=== PATIENT | female | born 1990 | race African-American/Black ===

== ENCOUNTER → 2017-06-27 17:37 | Outpatient (REF) | payer MEDICAID, SELFPAY ==
[2017-06-30 15:31] LABS: Neisseria gonorrhoeae, NAA Negative (Negative)
== END ==
LOC: LAB 17:37
PROVIDERS: Visit Provider Nurse Practitioner Obstetrics & Gynecology
DX: Z20.2 Contact with and (suspected) exposure to infections with a predominantly sexual mode of transmission (principal)
CPT/HCPCS: 87491; 87591

== ENCOUNTER 2018-10-06 16:00 | Outpatient (RCR) | payer MEDICAID, SELFPAY | END 2018-10-06 16:05 | disposition home or self-care (01) | LOC: PT 16:00 | PROVIDERS: Visit Provider Nurse Practitioner | DX: M54.2 Cervicalgia (principal); M25.511 Pain in right shoulder | CPT/HCPCS: 97110; 97163 ==

== ENCOUNTER → 2020-05-05 16:02 | Outpatient (CLI) | payer OTHER, SELFPAY ==
[2020-05-05 18:26] LABS: HCG,Quantitative 3207 mIU/ml (0-5.42)
== END ==
PROVIDERS: Visit Provider Nurse Practitioner Obstetrics & Gynecology
DX: Z34.90 Encounter for supervision of normal pregnancy, unspecified, unspecified trimester (principal)
CPT/HCPCS: 36415; 84702

== ENCOUNTER 2020-05-10 18:29 | Emergency (ER) | payer OTHER, SELFPAY ==
[2020-05-10 18:30] VITALS: BP 129/89; PULSE 100; RESP 20; TEMP 36.8; O2SAT 100; BMI 32.3
--- NOTE | 2020-05-10 19:03 | HMH.EDGENADL ---
ED Disposition Clinical Impression: Vaginal bleeding during Disposition: Still a Patient Condition on Discharge: Good Referrals: Zafar Ortiz MD [Primary Care Provider] - - Critical Care Critical Care Time: No Attestation: On 05/10/20, the high probability of a clinically significant, sudden or life threatening deterioration of the following system(s) required my full and direct attention, intervention and personal management. The time I documented below is in addition to time spent performing reported procedures but includes the following listed in this critical care notation. Medical Decision Making - Medical Records Medical records reviewed: Yes: I reviewed the patient's medical records. MR Comment: blood type A+. She has had a beta hCG done here on 05/05/2020 which was 3207. - Marciano Inquiry Pt receiving controlled substance: No Vital Signs: 05/10/20 18:30 05/10/20 19:24 Temperature 98.2 F Temperature Source Oral Pulse Rate [Left Radial] 100 H 88 Respiratory Rate 20 Blood Pressure [Right Arm] 129/89 111/71 Blood Pressure Mean [Right Arm] 102 84 Blood Pressure Source [Right Arm] Automatic Cuff Automatic Cuff Blood Pressure Position [Right Arm] Sitting Sitting 02 Sat by Pulse Oximetry 100 100 Oxygen Delivery Method Room Air Room Air - Lab Data Lab Results 05/10/20 18:48: HCG, Quant 4311 H 05/10/20 18:48: WBC 4.8, RBC 3.97 L, Hgb 14.0, Hct 43.8, MCV 110.4 H, MCH 35.4 H, MCHC 32.0, RDW 14.0, Plt Count 344, MPV 7.9, Neut % (Auto) 49.1, Lymph % (Auto) 39.8, [place] % (Auto) 8.5, Eos % (Auto) 1.7, Baso % (Auto) 1.0, Neut # (Auto) 2.4, Lymph # (Auto) 1.9, [place] # (Auto) 0.4, Eos # (Auto) 0.1, Baso # (Auto) 0.1 05/10/20 18:48: Sodium 137, Potassium 3.9, Chloride 106, Carbon Dioxide 20 L, Anion Gap 14.9, BUN 5 L, Creatinine 0.50 L, Estimated Creat Clear 207, Estimated GFR 144, Est GFR ( Amer) 174, Glucose 90, Calcium 10.0 Result diagrams: 05/10/20 18:48 05/10/20 18:48 Orders (Tests/Meds): ORDERS Category Date Time Status US OB transvaginal Stat Ultrasound 05/10/20 19:08 Ordered - Physician Consults Physician Consulted: Yessi Time: 20:00 Reason -: Obstetrical Eval/Care Comment/Response: Requests call back when US result available. Medical Decision Narrative: 8:00 PM: At shift change, I have discussed the patient with Dr. Morataya, who will assume care of the patient at this time. I have discussed all clinical information including history, physical and diagnostic study results. Preliminary diagnoses based on information available at this point have been recorded by me. Controlled substance administration and critical care statement are also preliminary, as of the time of handoff. General Adult HPI - General Stated complaint: and bleeding Time Seen by Provider: 05/10/20 19:00 - History of Present Illness HPI narrative: 2 para 1 with a last normal menstrual period of March 11, 2020 now presenting with vaginal bleeding. She says that she found out she was on Tuesday 1 week ago. On Tuesday, 5 days ago, she began having some spotting. It went up on Tuesday but then started up again yesterday. She thinks she might of passed a small clot. No pain. Her PERIANESTHESIA MANAGER is going to be Dr. Tejada. States she had her second Covid vaccine on Tuesday. - Related Data Previous Rx's Medication Instructions Recorded norethindrone 1 mg-ethin. 1 cap PO DAILY #28 cap 07/11/18 estradiol 20 mcg (24)-iron 75 mg (4) capsule levonorgestrel-ethinyl estradiol 1 tab PO DAILY #28 tab 08/22/18 0.1 mg-20 mcg tablet norgestimate 0.25 mg-ethinyl 1 tab PO DAILY #28 tab 10/26/18 estradiol 35 mcg tablet Allergies Allergy/AdvReac Type Severity Reaction Status Date / Time No Known Allergies Allergy Verified 05/09/18 16:09 [facility] History - Hepatitis A Screen Attestation statement:: This patient has been screened for Hepatitis A risk factors.
--- NOTE | 2020-05-10 19:08 | US_ITS ---
PROCEDURE: US OB TRANSVAGINAL Referring Doctor: Peter Landry Patient Age:29Y CLINICAL INDICATION: bleeding, , r/o ectopic Positive test with bleeding the COMPARISON: No exams were available for comparison FINDINGS: Small early gestational sac is seen towards the fundus Yolk sac identified with small pole. Amnion and chorion vaguely seen.. uterus appears mildly enlarged measuring 9.93 cm in length x 3.9 cm AP X 3.9 cm wide. Generous endometrium throughout the uterus. Endometrium measuring 1.35 cm AP,, with what appears to be decidual reaction Mean gestational sac size-6.7 mm less than 6 week [place]-rump length = 4 mm = 6 weeks 1 day. However we were unable to confirm cardiac activity at this point. A follow-up ultrasound and follow-up/serial beta HCG suggested to better confirm status this or least Average ultrasound age = 6 weeks 1 day Gestational age = 6 weeks 1 day based on LMP of 03/11/2020 Heart Rate = cardiac activity could not be confirmed even with color Doppler Right ovary normal size 2.6 x 2 cm x 2.4 cm. Small likely follicular cyst. Left ovary normal size 1.5 x 1.2 x 1.65 cm.. Unremarkable The fluid cul-de-sac IMPRESSION: Single intrauterine gestation 6 weeks 1 day ultrasound Age. However no cardiac activity could be verified. . This will require follow-up beta HCG and ultrasound to better determine status of this early Also note crown-rump length = 6 weeks 1 day../and mean sac size less than 6 weeks. (These are compared to gestational age, anticipated to be 8 weeks 4 days) Dictated by: Romaine Banegas MD 05/11/2020 16:55 Romaine Banegas MD in [place] 05/11/2020 16:55
[2020-05-10 19:17] LABS: Basophils # 0.1 K/mm3 (0-0.2); Eosinophils # 0.1 K/mm3 (0.0-0.4); Eosinophils % 1.7 % (0.1-12.0); Hematocrit 43.8 % (37.0-47.0); Lymphocytes # 1.9 K/mm3 (0.7-4.5); Lymphocytes % 39.8 % (10-50); Mean Corpuscular Hemoglobin 35.4 pg (27.0-31.2); Mean Corpuscular Volume 110.4 fl (81-99); Mean Platelet Volume 7.9 fl (7.4-10.4); Monocytes # 0.4 K/mm3 (0.1-1.0); Monocytes % 8.5 % (1.7-9.3); Neutrophils # 2.4 K/mm3 (1.8-7.8); Neutrophils % 49.1 % (37.0-80.0); Platelet Count 344 K/mm3 (142-424); Red Blood Count 3.97 M/mm3 (4.20-5.40); White Blood Count 4.8 K/mm3 (4.8-10.8)
[2020-05-10 19:18] LABS: Chloride 106 mmol/L (98-107); Potassium 3.9 mmoL/L (3.5-5.1); Sodium 137 mmol/L (136-145)
[2020-05-10 19:21] LABS: Anion Gap 14.9 mEq/L (5-15); Blood Urea Nitrogen 5 mg/dl (7-17); Carbon Dioxide 20 mmol/L (22.0-30.0); Creatinine Clearance Estimated 207 mL/min (50-200); Estimated Glomerular Filt Rate 144 ml/min (>60); GFR (African American) 174 ML/MIN (>60); Glucose 90 mg/dl (74-100)
[2020-05-10 19:24] VITALS: BP 111/71; PULSE 88; O2SAT 100
[2020-05-10 19:39] LABS: HCG,Quantitative 4311 mIU/ml (0-5.42)
[2020-05-10 20:00] VITALS: BP 121/80; PULSE 79; RESP 17; O2SAT 100
[2020-05-10 21:13] VITALS: BP 125/78; PULSE 76; RESP 16; TEMP 36.8; O2SAT 99
== END 2020-05-10 21:16 | disposition home or self-care (01) ==
PROVIDERS: Emergency Provider Emergency Medicine; PCP Family Medicine
DX: O20.8 Other hemorrhage in early pregnancy (principal); Z3A.01 Less than 8 weeks gestation of pregnancy; F41.9 Anxiety disorder, unspecified
CPT/HCPCS: 76817; 80048; 84702; 85025; 99283

== ENCOUNTER 2020-07-08 10:51 | Emergency (ER) | payer OTHER, SELFPAY ==
[2020-07-08 10:55] VITALS: BP 156/96; PULSE 108; RESP 16; TEMP 36.6; O2SAT 100; BMI 30.4
--- NOTE | 2020-07-08 11:20 | HMH.EDUTC ---
[facility] [place] Clinical Impression: Torticollis, Neck pain Disposition: Home, Self-Care Condition on Discharge: Good Instructions: Torticollis, DI for Torticollis Additional Instructions: Go home and rest. It would be best if you rested tomorrow too. No heavy lifting. No twisting. Take the oral medications as directed. The muscle relaxer (robaxin) will make you drowsy, so don't drive or operate heavy machinery after taking it. Don't start the oral steroids (medrol dose pack) until tomorrow, since you had the shots in here today. Follow up with your regular doctor. GO TO THE ER FOR ANY WORSENING SYMPTOMS OR CONCERNS Prescriptions: Cyclobenzaprine HCl [Cyclobenzaprine 10mg Tab*] 10 mg PO BIDP PRN #30 tab PRN Reason: Muscle Spasm Transmission Status: Received by [facility] #[id number] methylPREDNISolone [Medrol] 4 mg PO DIRECTED 6 Days #21 tab.ds.pk Transmission Status: Received by [facility] #[id number] Referrals: Zafar Ortiz MD [Primary Care Provider] - Forms: Work/School Release Time of Disposition: 11:27 Medical Decision Making - Medical Records Medical records reviewed: No: I reviewed the patient's medical records. - Marciano Inquiry Pt receiving controlled substance: No Vital Signs: 07/08/20 10:55 07/08/20 11:35 Temperature 97.9 F 98 F Temperature Source Oral Pulse Rate 102 H Pulse Rate [Right] 108 H Respiratory Rate 16 16 Blood Pressure 148/97 H Blood Pressure [Right Arm] 156/96 H Blood Pressure Mean [Right Arm] 116 Blood Pressure Source [Right Arm] Automatic Cuff Blood Pressure Position [Right Arm] Sitting 02 Sat by Pulse Oximetry 100 Oxygen Delivery Method Room Air Orders (Tests/Meds): ED MEDICATIONS Discontinued Medications Generic Name Dose Route Start Last Admin Trade Name Freq PRN Reason Stop Dose Admin Ketorolac Tromethamine 60 mg 07/08/20 11:19 07/08/20 11:26 Ketorolac 60mg/2ml Vial IM 07/08/20 11:20 60 mg ONCE ONE Administration Methylprednisolone Sodium Succinate 125 mg 07/08/20 11:19 07/08/20 11:30 Methylprednisolone Sod Succ 125mg Vial IM 07/08/20 11:20 125 mg ONCE ONE Administration [facility] [place] - General Stated complaint: neck/shoulder pain Time Seen by Provider: 07/08/20 11:21 Mode of Arrival: Ambulatory Source of Information: Patient Limitations: No Limitations Description of Symptoms (Recalled from Triage Doc. by RN): pt c/o neck pain that radiates into her left shoulder. she describes the pain as throbbing and 8/10. pt states this happens a couple times a year. shes been to physical therapy before. she states normally she gets a shot of torodol and muscle relaxers, and that helps. HEENT Symptoms (Recalled from RN notes): No Resp Symptoms (Recalled from RN notes): No Skin Symptoms (Recalled from RN notes): No MS Symptoms (Recalled from RN notes): Yes (neck pain radiating to L shoulder) Functional Status (Recalled from RN notes): na - History of Present Illness Provider Complaint: She states that for the past 6 days, she has had neck pain and stiffness. She has had these same symptoms in the past. She denies any history of injury. 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 She denies any fever or chills. - Related Data Home Medications Medication Instructions Recorded Confirmed COVID-19 vacc,mRNA(Pfizer)(PF) 30 ml IM 05/14/20 05/14/20 mcg/0.3 mL IM susp (EUA) Previous Rx's Medication Instructions Recorded norethindrone 1 mg-ethin. 1 cap PO DAILY #28 cap 07/11/18 estradiol 20 mcg (24)-iron 75 mg (4) capsule levonorgestrel-ethinyl estradiol 1 tab PO DAILY #28 tab 08/22/18 0.1 mg-20 mcg tablet norgestimate 0.25 mg-ethinyl 1 tab PO DAILY #28 tab 10/26/18 estradiol 35 mcg tablet Cyclobenzaprine HCl 10 mg PO BIDP PRN #30 tab 07/08/20 [Cyclobenzaprine 10mg Tab*] methylPREDNISolone [Medrol] 4 mg PO DIRECTED 6 Days #21 07/08/20 tab.ds.pk Allergies Allergy/AdvReac
[2020-07-08 11:35] VITALS: BP 148/97; PULSE 102; RESP 16; TEMP 36.6
== END 2020-07-08 11:38 | disposition home or self-care (01) ==
PROVIDERS: Emergency Provider Nurse Practitioner Family; PCP Family Medicine
DX: M43.6 Torticollis (principal); F41.9 Anxiety disorder, unspecified; F17.210 Nicotine dependence, cigarettes, uncomplicated
CPT/HCPCS: 96372; 99202; G0463

== ENCOUNTER → 2020-08-28 09:25 | Outpatient (CLI) | payer OTHER, SELFPAY ==
[2020-08-28 10:17] LABS: HCG,Quantitative 920 mIU/ml (0-5.42)
== END ==
PROVIDERS: Visit Provider Nurse Practitioner Obstetrics & Gynecology
DX: N92.6 Irregular menstruation, unspecified (principal)
CPT/HCPCS: 36415; 84702

== ENCOUNTER → 2020-09-05 10:25 | Outpatient (CLI) | payer OTHER, SELFPAY ==
[2020-09-05 12:05] LABS: HCG,Quantitative 12054 mIU/ml (0-5.42)
== END ==
PROVIDERS: Visit Provider Nurse Practitioner Obstetrics & Gynecology
DX: Z34.90 Encounter for supervision of normal pregnancy, unspecified, unspecified trimester (principal)
CPT/HCPCS: 36415; 84702

== ENCOUNTER → 2020-09-19 12:54 | Outpatient (CLI) | payer OTHER, SELFPAY ==
--- NOTE | 2020-09-19 12:54 | US_ITS ---
PROCEDURE: US OB <= 14 WEEKS FETUS CLINICAL INDICATION: US OB DATES before 14 wks COMPARISON: No exams were available for comparison FINDINGS: An intrauterine gestational sac is present with a pole with a crown-rump length of 1.66cm correlating to gestational age of 8weeks 1day. heart tones are present with an FHR of 170bpm. Composite ultrasound age is 04/30/2021. There is a 4 centimeter mildly septated right ovarian cyst. Repeat transvaginal ultrasound at conclusion of is recommended. Left ovary is normal. No free fluid in the pelvis. IMPRESSION: Single early living intrauterine with composite ultrasound age of 8 weeks 1 day with YURIY by ultrasound of 04/30/2021. 4 centimeter mildly septated right ovarian cyst. Repeat transvaginal ultrasound at conclusion of is recommended. No free fluid in the pelvis. Dictated by: Nicholas Encinas MD 09/19/2020 13:42 Nicholas Encinas MD in [place] 09/19/2020 13:42
== END ==
PROVIDERS: PCP Family Medicine; Visit Provider Nurse Practitioner Obstetrics & Gynecology
DX: O26.841 Uterine size-date discrepancy, first trimester (principal)
CPT/HCPCS: 76801

== ENCOUNTER → 2020-10-13 11:55 | Outpatient (CLI) | payer OTHER, SELFPAY ==
[2020-10-13 12:29] LABS: Basophils # 0.1 K/mm3 (0-0.2); Eosinophils # 0.1 K/mm3 (0.0-0.4); Eosinophils % 1.6 % (0.1-12.0); Hematocrit 33.3 % (37.0-47.0); Hemoglobin 11.3 g/dL (12.2-16.2); Lymphocytes % 30.2 % (10-50); Mean Corpuscular Hemoglobin 33.1 pg (27.0-31.2); Mean Corpuscular Volume 97.4 fl (81-99); Mean Platelet Volume 7.6 fl (7.4-10.4); Monocytes # 0.3 K/mm3 (0.1-1.0); Monocytes % 4.2 % (1.7-9.3); Neutrophils # 4.2 K/mm3 (1.8-7.8); Platelet Count 374 K/mm3 (142-424); Red Blood Count 3.42 M/mm3 (4.20-5.40); Red Cell Distribution Width 12.9 % (11.5-17.5); White Blood Count 6.6 K/mm3 (4.8-10.8)
[2020-10-14 06:05] LABS: HIV Screen 4th Generation wRfx Non Reactive (Non Reactive); Hepatitis B Surface Antigen Negative (Negative); Hepatitis C Antibody <0.1 s/co ratio (0.0-0.9)
[2020-10-14 09:14] LABS: HSV 1 IgG, Type Spec <0.91 index (0.00-0.90); HSV 2 IgG, Type Spec <0.91 index (0.00-0.90); Rubella Antibodies, IgG 1.45 index (Immune >0.99)
[2020-10-14 12:35] LABS: Rapid Plasma Reagin Ab Titer Non Reactive (NonRea<1:1)
== END ==
PROVIDERS: Visit Provider Nurse Practitioner Obstetrics & Gynecology
DX: Z34.91 Encounter for supervision of normal pregnancy, unspecified, first trimester (principal)
CPT/HCPCS: 36415; 85025; 86592; 86695; 86703; 86762; 86790; 86850; 87340; 87380; G0432

== ENCOUNTER → 2020-12-11 12:38 | Outpatient (CLI) | payer OTHER, SELFPAY ==
--- NOTE | 2020-12-11 12:38 | US_ITS ---
PROCEDURE: US OB /MATERNAL DETAIL CLINICAL INDICATION: 20 WEEKS GESTATION A COMPARISON: US US OB <= 14 WEEKS FETUS from 09/19/2020 FINDINGS: There is a single live intrauterine gestation in breech presentation. heart and body motion is noted. The cervix is closed and measures 4 cm. The placenta is anterior and grade 1. Complete survey performed and was unremarkable on the submitted images as in PACS. No discrete anomalies identified on survey imaging by technologist. Active fetus. Three-vessel cord with satisfactory umbilical cord insertion. 4- chamber heart noted. Survey of brain & ventricles Unremarkable. Face and neck survey unremarkable. Diaphragm and chest views unremarkable. Abdomen: Both kidneys noted and unremarkable. Stomach noted and satisfactory. Spine: Survey of the spine satisfactory with no anomalies identified nor imaged. Both arms and legs noted. Amniotic Fluid: Adequate. Maternal adnexa: No significant findings. Measurements: Average ultrasound age 19weeks 6days. Gestational Age 19weeks 6days Estimated due date by ultrasound age 0105/01/2021. Estimated weight 321g BPD = 20weeks OFD = 20weeks 1day HC = 19weeks 2days AC = 20weeks FL = 20weeks Growth Percentile= 12% Heart Rate = 144bpm Cerebellum = 20weeks 2days Humerus = 20weeks 5days HC/AC is 1.13 CI is 0.78 FL/BPD is 0.7 FL/AC is 0.22 IMPRESSION: Live IUP in breech presentation with an average ultrasound age of 19 weeks and 6 days. All parameters correlate with no obvious anomalies. Please see above for detail Dictated by: Srikanth Blackwood MD 12/11/2020 17:25 Srikanth Blackwood MD in [place] 12/11/2020 17:25
== END ==
PROVIDERS: PCP Family Medicine; Visit Provider Nurse Practitioner Obstetrics & Gynecology
DX: Z36.0 Encounter for antenatal screening for chromosomal anomalies (principal)
CPT/HCPCS: 76811

== ENCOUNTER → 2021-01-16 08:17 | Outpatient (CLI) | payer OTHER, SELFPAY ==
[2021-01-16 08:51] LABS: Glucose,Fasting 80 mg/dl (74-100)
[2021-01-16 10:29] LABS: Glucose 1 Hour 135 mg/dL (74-100)
== END ==
PROVIDERS: Visit Provider Nurse Practitioner Obstetrics & Gynecology
DX: Z34.90 Encounter for supervision of normal pregnancy, unspecified, unspecified trimester (principal)
CPT/HCPCS: 36415; 82951

== ENCOUNTER → 2021-01-21 17:33 | Outpatient (CLI) | payer OTHER, SELFPAY ==
[2021-01-23 13:10] LABS: Varicella-Zoster Ab, IgM <0.91 index (0.00-0.90)
[2021-01-23 14:40] LABS: Measles Antibodies, IgG 17.5 AU/mL (Immune >16.4); Mumps Abs, IgG 38.8 AU/mL (Immune >10.9)
[2021-01-24 05:32] LABS: Rubella Antibodies, IgG 1.38 index (Immune >0.99)
== END ==
PROVIDERS: Visit Provider Family Medicine
DX: Z01.84 Encounter for antibody response examination (principal)
CPT/HCPCS: 36415; 86735; 86762; 86765; 86787

== ENCOUNTER → 2021-03-24 12:52 | Outpatient (CLI) | payer OTHER, SELFPAY ==
--- NOTE | 2021-03-24 12:52 | US_ITS ---
PROCEDURE: US OB FOLLOW UP CLINICAL INDICATION: lga FINDINGS: The following parameters are obtained: Live IUP is present in cephalic presentation. heart and body motion is noted. Placenta is anterior and fundal and grade 2. Average ultrasound age is Average 34weeks Estimated due date by ultrasound is 05/05/2021. Estimated weight is 2,394g. This 33 percentile. BPD: 33weeks 2days OFD: HC: 33weeks 3days AC: 34weeks 5days FL: 34weeks 3days heart rate: 149bpm bpm. HC/AC: 0.98 Cephalic index: 0.77 FL/BPD: 0.81 FL/AC: 0.22 Amniotic fluid index: 11.49cm IMPRESSION: Live IUP in cephalic presentation with an average ultrasound age of 34 weeks 0 days an estimated weight of 2394 g which is 33 percentile. JULIO normal at 12 cm Dictated by: Srikanth Blackwood MD 03/24/2021 17:57 Srikanth Blackwood MD in [place] 03/24/2021 17:57
== END ==
PROVIDERS: PCP Family Medicine; Visit Provider Nurse Practitioner Obstetrics & Gynecology
DX: O36.60X0 Maternal care for excessive fetal growth, unspecified trimester, not applicable or unspecified (principal)
CPT/HCPCS: 76816; 76819

== ENCOUNTER → 2021-03-25 16:41 | Outpatient (CLI) | payer OTHER, SELFPAY | PROVIDERS: Visit Provider Nurse Practitioner Obstetrics & Gynecology | DX: Z34.90 Encounter for supervision of normal pregnancy, unspecified, unspecified trimester (principal) | CPT/HCPCS: 86403 ==

== ENCOUNTER → 2021-04-17 13:35 | Outpatient (CLI) | payer OTHER, SELFPAY ==
[2021-04-17 14:23] LABS: Chloride 104 mmol/L (98-107); Sodium 135 mmol/L (136-145)
[2021-04-17 14:26] LABS: Blood Urea Nitrogen 3 mg/dl (7-17); Carbon Dioxide 22 mmol/L (22.0-30.0); Estimated Glomerular Filt Rate 185 ml/min (>60); GFR (African American) 224 ML/MIN (>60)
[2021-04-17 14:27] LABS: Calcium 9.2 mg/dl (8.4-10.2); Glucose 72 mg/dl (74-100)
[2021-04-17 14:28] LABS: Basophils % 0.4 % (0.1-2.0); Eosinophils # 0.2 K/mm3 (0.0-0.4); Eosinophils % 1.6 % (0.1-12.0); Hematocrit 35.1 % (37.0-47.0); Hemoglobin 11.2 g/dL (12.2-16.2); Lymphocytes # 2.1 K/mm3 (0.7-4.5); Lymphocytes % 21.9 % (10-50); Mean Corpuscular HGB Conc 32.1 g/dL (31.8-35.4); Mean Corpuscular Hemoglobin 31.3 pg (27.0-31.2); Mean Corpuscular Volume 97.6 fl (81-99); Mean Platelet Volume 9.3 fl (7.4-10.4); Monocytes # 0.4 K/mm3 (0.1-1.0); Monocytes % 4.4 % (1.7-9.3); Neutrophils # 6.8 K/mm3 (1.8-7.8); Neutrophils % 71.8 % (37.0-80.0); Platelet Count 378 K/mm3 (142-424); Red Blood Count 3.59 M/mm3 (4.20-5.40); Red Cell Distribution Width 13.9 % (11.5-17.5); White Blood Count 9.4 K/mm3 (4.8-10.8)
== END ==
PROVIDERS: PCP Family Medicine; Visit Provider Nurse Practitioner Obstetrics & Gynecology
DX: Z01.818 Encounter for other preprocedural examination (principal); Z34.90 Encounter for supervision of normal pregnancy, unspecified, unspecified trimester
CPT/HCPCS: 36415; 80048; 85025; C9803; U0003; U0005

== ENCOUNTER 2021-04-18 04:48 | Inpatient (IN) | payer OTHER, SELFPAY ==
[2021-04-18] VITALS (7 sets, daily range): BP systolic 107–122; BP diastolic 55–75; PULSE 65–101; RESP 14–22; TEMP 36.3–37.1; O2SAT 97–100; BMI 34.7
[2021-04-18 04:21] LABS: Microscopic, Urine URINE MICROSCOPIC (MICROSCOPIC)
[2021-04-18 04:33] LABS: Appearance,Urine SL CLOUDY (Clear); Bilirubin,Urine Negative (Negative); Blood, Urine 1+ (Negative); Color,Urine YELLOW (Yellow); Fetal Membrane Rupture (Rapid) Positive (Negative); Glucose,Urine (UA) Negative (Negative); Ketones,Urine Negative (Negative); Leukocyte Esterase,Urine Negative (Negative); Nitrate,Urine Negative (Negative); Protein,Urine Negative (Negative); Specific Gravity, Urine >= 1.030 (1.005-1.030)
[2021-04-18 04:35] LABS: Amorphous Sediment,Urine Trace /lpf; Mucus,Urine Trace /lpf; WBC,Urine Occasional #/hpf (0-3)
[2021-04-18 04:41] LABS: Benzodiazepines Screen,Urine Negative ng/ml (<200)
[2021-04-18 04:42] LABS: Amphetamine/Metha Screen,Urine Negative ng/ml (<1000)
[2021-04-18 04:43] LABS: Barbiturates Screen,Urine Negative ng/ml (<200); Cannabinoid Screen,Urine Negative ng/ml (<50)
[2021-04-18 04:44] LABS: Cocaine Screen,Urine Negative ng/ml (<300)
[2021-04-18 04:45] LABS: Methadone Screen,Urine Negative ng/ml (<300); Opiate Screen,Urine Negative ng/ml (<300)
[2021-04-18 04:46] LABS: Phencyclidine Screen,Urine Negative ng/ml (<25)
[2021-04-18 06:31] LABS: Coronavirus 19, PCR Not Detected (NotDetected); Influenza A, PCR Not Detected (NotDetected); Influenza B, PCR Not Detected (NotDetected)
--- NOTE | 2021-04-18 06:34 | PC.NURSE ---
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 She stated she would notify Hilda.
--- NOTE | 2021-04-18 08:31 | HMH.OBAPHP ---
OB - H&P: HPI Antepartum - History of Present Illness Chief complaint: Term , ruptured membranes History of present illness: She is a 30-year-old 3 para 1 aborta 1 who is 38 and 6 weeks gestational age. She was scheduled for a repeat in 48 hours time. She ruptured her membranes this morning about 2:45 AM. - History of Present Criteria for establishing EDC:: LMP confirmed by 1st trimester US care: good care Ultrasounds: normal 1st trimester US, normal mid trimester US Obstetrical complications: none, previous Medical complications: none - Labs Rubella: immune RPR/VDRL: nonreactive GBS status: negative HBsAG: negative [facility] History I have reviewed the patient's past medical history: Yes Medical History: Reports:: Anxiety Denies:: Depression, Diabetes Mellitus Type 1, Hypertension *Have you ever received a pneumonia vaccine?: No *Have you received a flu vaccine this season?: Yes Other Surgeries: Yes: Amputation: No Fractures: No - *Social History Smoking Status: Current every day smoker Tobacco Type: cigarettes # Packs/Day (cigarettes): 1 Alcohol Intake: never Alcohol Intake Frequency:: holidays/special occasions only Substance Use Type: denies use, marijuana *Occupational Status:: employed *Travel in the last 8 weeks: None - Psychiatric History Pschychiatric History:: Reports:: Anxiety Denies:: Depression Family Hx:: Cancer, Diabetes, Thyroid Disorder, Hypertension, Asthma, Stroke 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 Para: 1 Review of Systems - Review of Systems Review of systems:: pertinent systems reviewed and negative unless documented below Meds Home Medications Medication Instructions Recorded Confirmed Type Ferrous Sulfate 325 mg PO DAILY 04/18/21 04/18/21 History Vit No.126/Iron/Folic 1 tab PO DAILY 04/18/21 04/18/21 History [Classic ] Allergies Allergy/AdvReac Type Severity Reaction Status Date / Time No Known Allergies Allergy Verified 04/15/21 16:14 OB - H&P: Exam - Physical Exam Vital signs: Temp Pulse Resp BP Pulse Ox 98.7 F 101 H 18 115/75 98 04/18/21 04:08 04/18/21 04:08 04/18/21 04:08 04/18/21 04:08 04/18/21 04:08 - Constitutional no acute distress - Routine HEENT Exam Head: Present: normocephalic Eye: Present: EOMI, PERRL ENT: Present: mucous membranes moist - Routine Neck Exam Present: supple, full ROM - Routine Respiratory Exam Absent: accessory muscle use (good air entry bilaterally), respiratory distress, wheezes, crackles - Routine Cardiovascular Exam Present: RRR. Absent: murmur - Routine Abdominal Exam Present: soft, normoactive bowel sounds. Absent: tenderness, distended, guarding - Routine Rectal Exam Patient deferred: visual exam, digital exam - Routine Exam Patient deferred: external exam, groin exam, perineal exam - Routine Extremities Exam Present: full ROM. Absent: cyanosis, edema - Routine Skin Exam Present: intact. Absent: cyanosis - Routine Neurological Exam Present: alert, oriented X3 - Routine Psychiatric Exam Present: normal affect OB - Results - Labs Labs: Urine 04/18/21 Range/Units 03:30 Urine Color Yellow (Yellow) Urine Appearance Sl cloudy (Clear) Urine pH 6.0 (5.0-8.5) Ur Specific Hematite >= 1.030 (1.005-1.030) Urine Protein Negative (Negative) Urine Glucose (UA) Negative (Negative) OB - A/P Antepartum (1) Previous section complicating , antepartum condition or complication Status: Acute (2) delivery delivered Status: Acute - Additional Plan Planning to breastfeed?: Yes Plan: other Additional Information:: She has ruptured membranes so we will go ahead and deliver her this morning.
--- NOTE | 2021-04-18 09:00 | HMH.ANESCL ---
[facility] Anesthesia Checklist - Patient Identification Patient Identification: Arm Band - Structural Data Admitted From: Inpatient Planned Operative Procedure/s: C/S Consent for Planned Operative Procedure(s) Verified: Yes - NPO Status Verified Time NPO: 00:00 - Airway Assessment C-Spine Mobility Assessed: Yes TMJ Mobility Assessed: Yes Dentition: Good Dentition - Neurological Assessment Level of Consciousness: Awake Hx Seizures: No Numbness or tingling in extremities: No - Anesthesia Plan Anesthesia Risk discussed: Yes Anesthesia Plan: Verified ASA Class: II Anesthesia Type: Spinal [facility] History Medical History: Reports:: Anxiety Denies:: Depression, Diabetes Mellitus Type 1, Hypertension *Have you ever received a pneumonia vaccine?: No *Have you received a flu vaccine this season?: Yes Anesthesia experience/problems:: None Other Surgeries: Yes: Amputation: No Fractures: No - *Social History Smoking Status: Current every day smoker Tobacco Type: cigarettes # Packs/Day (cigarettes): 1 Alcohol Intake: never Alcohol Intake Frequency:: holidays/special occasions only Substance Use Type: denies use, marijuana *Occupational Status:: employed *Travel in the last 8 weeks: None - Psychiatric History Pschychiatric History:: Reports:: Anxiety Denies:: Depression Family Hx:: Cancer, Diabetes, Thyroid Disorder, Hypertension, Asthma, Stroke 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
--- NOTE | 2021-04-18 11:15 | HMH.OPNOTE ---
Date of procedure: 04/18/21 Pre-op Diagnosis:: Term , spontaneous rupture of membranes, previous section Post-op Diagnosis:: Term , spontaneous rupture of membranes, previous section Procedure performed:: Repeat lower segment transverse section. Surgeon:: John Tejada MD Tool Builder(s):: Dr. Salinas BACKHAUL DRIVER:: Elham Collins Anesthesia: spinal Estimated blood loss (mL): 600 Clinical Note:: She is a 30-year-old 3 para 1 aborta 1 who is 38 and 6 weeks gestational age. She has had a previous section. She was scheduled for repeat section in 48 hours. She had spontaneous rupture of membranes about 230 this morning. Operative findings:: She delivered a liveborn male child at 10:44 AM on the morning of April 18, 2021. Apgars were 9 at 1 minute and 10 at 5 minutes. Ovaries and tubes appeared normal. Operative note:: She was taken to the operating room where spinal anesthesia was found be adequate. She was prepped and draped in normal sterile fashion in the supine position with a leftward tilt. A Bojorquez catheter was in the bladder. A Pfannenstiel skin incision was made with knife then carried through to the underlying layer of fascia with cautery. The fascia was opened in the midline with cautery and extended laterally using Suarez scissors. Panacea clamps were applied to the superior aspect of the fascial incision which was tented up and the underlying rectus muscles dissected off using cautery. The Felipe clamps were then applied to the inferior aspect of the fascial incision which in a similar fashion was tented up and the underlying rectus muscles dissected off using cautery. The rectus muscles were then in the midline, the peritoneum identified, and entered sharply with Metzenbaum scissors. This incision was then extended superiorly and inferiorly with cautery. We had good visualization of the bladder inferiorly. The bladder peritoneum was then opened in the midline and extended laterally using Metzenbaum scissors. A bladder flap was created digitally. Transverse incision was made through the uterine muscle to the amnion. This incision was then extended laterally using fingers traction. The amnion was entered sharply with knife. There was clear amniotic fluid. The infant's head was then delivered atraumatically. This was followed by the anterior shoulder and the rest of the infant's body atraumatically. The oropharynx and nasopharynx were bulb suctioned. We allowed the cord to continue to pulsate for approximately 1 minute. The infant was then handed off to Dr. Ortiz who assigned Apgars of 9 at 1 minute and 10 at 5 minutes. We then obtained cord blood. Using gentle traction on the cord and countertraction on the fundus I was able to easily deliver the placenta intact. It had a normal three-vessel cord. The uterus was then cleared of clots and debris . The uterine incision was then closed using running 0 Vicryl suture in a locked fashion. A second layer of the same suture was used to imbricate the first layer. The bladder peritoneum was then closed using running 2-0 Vicryl suture in a locked fashion. The gutters and cul-de-sac were then cleared of clots and debris . Once again hemostasis was assured. The uterus was then returned to the abdominal cavity after exteriorizing the uterus and cleaning the cul-de-sac. The peritoneum was grasped with Cindi clamps and closed using running 2-0 Vicryl suture. The rectus muscles were then reapproximated using running 0 Vicryl suture. The fascia was closed using running #1 Vicryl suture. The subcutaneous tissues were then irrigated with warm water followed by closure Dane's fascia using running 2-0 Monocryl suture. The skin was closed with running subcuticular 4-0 Monocryl strata fix suture.. I then cleaned the skin with Hibiclens. Sterile dressings were applied. We then performed a bilateral tap block using Exparel and ultrasound guidance
--- NOTE | 2021-04-18 11:22 | P.PN_ITS ---
[facility] Anesthesia Record Part I Intake, IV Amount: 1,000 Estimated blood loss (mL): 600 Urine output (mL): 100 Blood Pressure: 111/55 SaO2: 100 Pulse Rate: 76 Respiratory Rate: 14 Temperature: 97.5 F Patient is:: Awake Stable to PACU at:: 11:18
[2021-04-19 00:05] VITALS: BP 96/56; PULSE 94; RESP 16; TEMP 36.6; O2SAT 99
[2021-04-19 04:25] VITALS: BP 103/67; PULSE 83; RESP 18; TEMP 36.7; O2SAT 99
[2021-04-19 06:52] LABS: Hemoglobin 9.1 g/dL (12.2-16.2)
[2021-04-19 06:54] LABS: Hematocrit 29.1 % (37.0-47.0)
--- NOTE | 2021-04-19 09:41 | PC.NURSE ---
09:37 Spoke with ID number [id number] from [facility] After hours number. Reports they can not provide me with a name due to them not working directly with [facility] social workers. Report given to them that Carol Alsey with birthdate of 1990 gave to a male ,Manuel Finney on 04/18/2021, Carol had x1 positive urine drug screen throughout , this occurred on 09/15/2020, she was positive for THC. Guerline has had negative urine drug screens since, and was negative on admission on 04/18/2021. Manuel Finney was also negative for THC and other drugs after , on Urine drug screen. Confirmation # [id number] was received.
--- NOTE | 2021-04-19 17:21 | HMH.ACPN2 ---
Internal Medicine - PN: Subj *Date: 04/19/21 *Time: 17:21 Interval history: She is doing well today. She is eating and drinking and ambulating. Her pain is reasonably well controlled. Exam Vital signs and Labs for Last 24 Hours: Temp Pulse Resp BP Pulse Ox 98.0 F 83 18 103/67 L 99 04/19/21 04:25 04/19/21 04:25 04/19/21 04:25 04/19/21 04:25 04/19/21 04:25 Laboratory Results - last 24 hr 04/19/21 06:40: Hgb 9.1 L, Hct 29.1 L I & O for Last 24 hours: Intake & Output 04/17/21 04/18/21 04/19/21 04/20/21 11:59 11:59 11:59 11:59 Intake Total 1000 / 1000 Balance 1000 / 1000 Weight 196 lb - Constitutional no acute distress - *Routine HEENT Exam Head: Present: normocephalic Eye: Present: EOMI, PERRL ENT: Present: mucous membranes moist Assessment and Plan (1) Previous section complicating , antepartum condition or complication Status: Acute Category: Surgical Code(s): O34.219 - Maternal care for unspecified type scar from previous delivery (2) delivery delivered Status: Acute Category: Medical Code(s): O82 - Encounter for delivery without indication - Assessment and plan all Dx Assessment and Plan for all problems:: She continues to do well. We will see her back in the morning. We may send her home tomorrow.
[2021-04-19 19:25] VITALS: BP 108/78; PULSE 77; RESP 18; TEMP 37; O2SAT 100
[2021-04-20] VITALS: BP 97/54; PULSE 73; RESP 18; TEMP 36.8; O2SAT 100
[2021-04-20 03:50] VITALS: BP 114/76; PULSE 69; RESP 18; TEMP 36.8; O2SAT 99
[2021-04-20 08:00] VITALS: BP 109/77; PULSE 80; RESP 18; TEMP 36.6; O2SAT 99
--- NOTE | 2021-04-20 08:39 | P.PN_ITS ---
[facility] Anesthesia Record Part II Discharge Time: 11:48 Destination: Surgical Day Care (OP Surgery) PACU nurse assessment reviewed?: Yes Patient Condition:: Good Anesthesia Complications:: None Swallowing reflex intact?: Yes Cyanosis?: No Blood Pressure: 107/74 Pulse Rate: 73 Temperature: 97.4 F Mental Status: Alert & Oriented Pain level:: 0 Nausea and/or vomitting:: None Intake, IV Amount: 0
[2021-04-20 08:40] VITALS: BP 107/74; PULSE 73; TEMP 36.3
--- NOTE | 2021-04-20 10:21 | HMH.OBDCSM ---
General - General Admission date:: 04/18/21 Discharge date: 04/20/21 HPI - History of Present Illness History of present illness: She is a 30-year-old 3 para 1 aborta 1 who is 38 and 6 weeks gestational age. She came in with ruptured membranes 48 hours prior to her . As result of that she was taken for a primary lower segment transverse section. Hospital Course Hospital Course: April 18, 2021 she underwent a repeat lower segment transverse section and delivered a liveborn male child at 10:44 AM. The baby weighed 6 pounds 9 ounces and had Apgars of 9 at 1 minute and 10 at 5 minutes. She has done well postoperatively and has remained afebrile with her hospitalization. She is eating and drinking and ambulating. She has a positive blood, she is about on unit and was group B streptococcus negative. Her health coach is Dr. Ortiz. She was discharged home to follow-up with me in approximately 2 weeks time. She will continue with her vitamins and iron. She was given these instructions with respect to limiting her activity, driving and sexual activity. She was given instructions with respect to wound care. She was given a prescription for Percocet 5/325 number 20 tablets. She will also take ibuprofen. Her condition on discharge stable and improved. Rhogam Administration: Not Indicated Objective Vital signs: Temp Pulse Resp BP Pulse Ox 97.4 F L 73 18 107/74 L 99 04/20/21 08:40 04/20/21 08:40 04/20/21 08:00 04/20/21 08:40 04/20/21 08:00 no acute distress - *Routine HEENT Exam Head: Present: normocephalic Eye: Present: EOMI, PERRL ENT: Present: mucous membranes moist Results Labs on day of discharge: Preliminary micro results at discharge 04/18/21 03:30 Urine Culture - Preliminary Urine,Catheterized NO GROWTH AFTER 24 HOURS DS: Diagnosis - Discharge Diagnosis (1) Previous section complicating , antepartum condition or complication Status: Acute (2) delivery delivered Status: Acute Discharge Plan - Patient Discharge Instructions ACTIVITY: No heavy lifting DIET: continue same diet Additional Instructions: *Nothing in Vagina for 6 weeks* *No heavy lifting* *No strenuous activity* *No driving while on opioid pain medication* Patient Instructions: Depression, Hemorrhage, DI for , DI for Pre-eclampsia, [facility] Post Discharge Instructions, Preventing the Spread of Coronavirus Discharge Instructions - Follow up Plan Follow up with: John Tejada MD [Staff Physician] - Disposition: Home, Self-Care Condition at discharge:: Stable Home Medications: Home Medications Medication Instructions Recorded Confirmed Type Ferrous Sulfate 325 mg PO DAILY 04/18/21 04/18/21 History Vit No.126/Iron/Folic 1 tab PO DAILY 04/18/21 04/18/21 History [Classic ] Oxycodone HCl/Acetaminophen 1 tab PO Q4-6H PRN #20 tablet 04/20/21 Rx [Percocet 5/325mg tablet] Prescriptions/Medication Reconciliation: New Oxycodone HCl/Acetaminophen [Percocet 5/325mg tablet] 1 tab PO Q4-6H PRN #20 tablet PRN Reason: Severe Pain Continued Ferrous Sulfate 325 mg PO DAILY Vit No.126/Iron/Folic [Classic ] 1 tab PO DAILY - Problem Reconciliation Problems Reviewed?: Yes
--- NOTE | 2021-04-20 10:59 | SW/DCPLANNER ---
PATIENT ADMITTED TO THE HOSPITAL FOR A SCHEDULED ...PATIENT DELIVERED A LIVE BORN MALE AND BOTH AND PATIENT ARE DOING WELL. SINCE PATIENT HAD A THC POSITIVE ON 09/15/2020. IT WAS CALLED IN TO CENTRAL INTAKE SINCE SHE HAD A POSITIVE INTAKE # [id number] WAS GIVEN. 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 THERE ARE 2 OTHER CHILDREN IN THE HOME AND PATIENT IS EMPLOYED WITH THE LOCAL [employer], [employer].. SHE CHOSE DR ALBARADO THE INFANTS DOCTOR.. THEY ARE DISCHARGING HOME TODAY AND WILL FOLLOW UP WITH DR ALBARADO THIS WEEK..
== END 2021-04-20 12:10 | disposition home or self-care (01) | DRG 788 ==
LOC: OBOUT 04:49 → OB 04:49
PROVIDERS: Admitting Provider Nurse Practitioner Obstetrics & Gynecology; PCP Family Medicine; Visit Provider Nurse Practitioner Obstetrics & Gynecology
PROC: 10D00Z1 Extraction of Products of Conception, Low, Open Approach (ICD-10-PCS; CPT 59514; principal; 2021-04-18 09:00)
DX: O34.211 Maternal care for low transverse scar from previous cesarean delivery (principal); O99.334 Smoking (tobacco) complicating childbirth; F17.210 Nicotine dependence, cigarettes, uncomplicated; Z3A.38 38 weeks gestation of pregnancy; Z37.0 Single live birth; N85.8 Other specified noninflammatory disorders of uterus
CPT/HCPCS: 59514; 36415; 59025; 80048; 80305; 81001; 84112; 85014; 85018; 85025; 86850; 87086; 94761; C9290; C9803; G0283; J0595; J2405; U0003; U0005

== ENCOUNTER 2022-01-19 10:02 | Emergency (ER) | payer OTHER, SELFPAY ==
[2022-01-19 10:10] VITALS: BP 125/91; PULSE 97; RESP 19; TEMP 36.8; O2SAT 98; BMI 32.9
--- NOTE | 2022-01-19 10:14 | EXP.UTC ---
Discharge Plan Disposition Patient Disposition: Home, Self-Care Condition: Good Prescriptions Prescriptions: New ibuprofen [IBU] 800 mg tablet 800 mg PO Q8HP PRN (Reason: Moderate Pain) Qty: 30 0RF No Action oxycodone-acetaminophen 5-325 mg tablet 1 tab PO Q4-6H PRN (Reason: Severe Pain) Qty: 20 0RF ferrous sulfate 325 MG tablet 325 mg PO DAILY vit no.115-[id number] 1 EACH tablet 1 tab PO DAILY Referrals Follow up/Referrals: Flaco Pete MD [Staff Physician] - See instructions Zafar Arriaga MD [Primary Care Provider] - See instructions Activity Restrictions/Add. Instructions Additional Instructions/Restrictions: Rest the extremity, apply ice for 15 minutes as tolerated three or four times per day, Wear the megan wrap for compression, Elevate the extremity as tolerated while you are resting. Take ibuprofen for pain. I sent in a prescription to your pharmacy. Follow up with Dr. Pete (orthopedics). I put in a referral but you need to call his office and schedule an appointment. Follow up with your regular doctor. GO TO THE ER FOR ANY WORSENING SYMPTOMS Clinical Impressions Clinical Impression: Sprain of foot, left, Left ankle sprain Stand Alone Forms Stand Alone Forms: Work/School Release Discharge ED Provider: Nicholas Leal [facility] General Stated complaint: AO 01/18@home@0900 paink in Lt ankle Mode of Arrival: Ambulatory Source of Information: Patient Limitations: No Limitations Time Seen by Provider: 01/19/22 10:14 Description of Symptoms (Recalled from Triage Doc. by RN): Pt c/o left ankle injury after falling into a gutter yesterday while taking child to daycare. Pt c/o pain in center of left foot that worsens with weightbearing. History of Present Illness Provider Complaint: She stepped in a hole yesterday and twisted her left foot and ankle. Since then she has had left foot and ankle pain. The pain is worse with walking or bearing weight. Related Data Home Medications Medication Instructions Recorded Confirmed ferrous sulfate 325 mg (65 mg 325 mg PO DAILY Supplement 04/18/21 04/29/21 iron) tablet vits no.126-ferrous fum 1 tab PO DAILY PREG. 04/18/21 04/29/21 28 mg iron-folic acid 800 mcg tablet Previous Rx's Medication Instructions Recorded oxycodone-acetaminophen 5 mg-325 1 tab PO Q4-6H PRN Severe Pain #20 04/27/ mg tablet tabs ibuprofen 800 mg tablet (IBU) 800 mg PO Q8HP PRN Moderate Pain 01/19/22 #30 tabs Allergies Allergy/AdvReac Type Severity Reaction Status Date / Time No Known Allergies Allergy Verified 01/19/22 10:25 [facility] Social History Smoking Status: Current every day smoker tobacco type: cigarettes packs per day: 1 alcohol intake: never substance use type: denies use and marijuana current occupational status: employed Travel in the last 8 weeks: None ROS Obtained: Yes All systems reviewed & no additional complaints except as documented Constitutional Constitutional: Denies chills and Denies fever(s) Integumentary/Breasts Skin/Breast: Denies redness, Denies rash and Denies wounds Neurologic Neurologic: Denies paresthesias Physical Exam General General appearance: alert and in no apparent distress Head Head exam: atraumatic, normocephalic and normal inspection Eye Eye exam: Present normal appearance, PERRL and EOMI ENT ENT exam: Present normal exam, normal oropharynx, mucous membranes moist, TM's normal bilaterally and normal external ear exam Neck Neck exam: Present normal inspection, full ROM and trachea midline; Absent meningismus or lymphadenopathy Chest Chest inspection: Present normal inspection and symmetric chest wall rise; Absent tenderness Respiratory Respiratory exam: Present normal lung sounds bilaterally; Absent respiratory distress Cardiovascular Cardiovascular exam: Present regular rate and normal rhythm;
--- NOTE | 2022-01-19 10:19 | XR_ITS ---
FINAL REPORT CLINICAL HISTORY: fall FINDINGS: LEFT FOOT Three views of the left foot demonstrate no acute fracture or dislocation. The visualized joint spaces are normally aligned. The soft tissues are unremarkable. IMPRESSION: No acute bony abnormality. Reviewed, Interpreted and Dictated by Rodriguez Shaffer III, MD Transcribed by Win Ramos Authenticated and . [facility]
--- NOTE | 2022-01-19 10:19 | XR_ITS ---
FINAL REPORT CLINICAL HISTORY: fall. x 1 DAY Left ankle and foot pain. FINDINGS: LEFT ANKLE: Three views of the left ankle were obtained. There is no acute fracture or dislocation. The joint spaces and mortise are intact. There is no soft tissue abnormality. IMPRESSION: No acute process. Reviewed, Interpreted and Dictated by Rodriguez Shaffer III, MD Transcribed by Win Ramos Authenticated and [facility]
[2022-01-19 10:23] VITALS: BP 125/91; PULSE 67; RESP 17; TEMP 36.7; O2SAT 99; BMI 32.9
[2022-01-19 11:53] VITALS: BP 125/91; PULSE 67; RESP 17; TEMP 36.7
== END 2022-01-19 11:54 | disposition home or self-care (01) ==
PROVIDERS: Emergency Provider Nurse Practitioner Family; PCP Internal Medicine Adolescent Medicine
DX: S93.402A Sprain of unspecified ligament of left ankle, initial encounter (principal); S93.602A Unspecified sprain of left foot, initial encounter; F17.210 Nicotine dependence, cigarettes, uncomplicated; Z79.1 Long term (current) use of non-steroidal anti-inflammatories (NSAID); Z79.899 Other long term (current) drug therapy; W50.2XXA Accidental twist by another person, initial encounter; Y92.009 Unspecified place in unspecified non-institutional (private) residence as the place of occurrence of the external cause
CPT/HCPCS: 73610; 73630; 99213; G0463

== ENCOUNTER → 2022-07-16 10:28 | Outpatient (CLI) | payer OTHER, SELFPAY ==
--- NOTE | 2022-07-16 10:32 | XR_ITS ---
FINAL REPORT CLINICAL HISTORY: NECK PAIN FINDINGS: CERVICAL SPINE Five views demonstrate no acute fracture. There is a disc osteophyte complex at C5-6. There is mild kyphosis centered on C5-6. No significant neural foraminal narrowing is identified. There is no malalignment. IMPRESSION: Degenerative change at C5-6. Reviewed, Interpreted and Dictated by Rodriguez Shaffer III, MD Transcribed by Fay Mix Authenticated and [facility]
[2022-07-16 11:33] LABS: Basophils % 0.9 % (0.1-2.0); Eosinophils # 0.1 K/mm3 (0.0-0.4); Eosinophils % 3.3 % (0.1-12.0); Hematocrit 45.1 % (37.0-47.0); Hemoglobin 13.8 g/dL (12.2-16.2); Lymphocytes # 1.9 K/mm3 (0.7-4.5); Mean Corpuscular HGB Conc 30.7 g/dL (31.8-35.4); Mean Corpuscular Hemoglobin 33.3 pg (27.0-31.2); Mean Corpuscular Volume 108.6 fl (81-99); Mean Platelet Volume 7.9 fl (7.4-10.4); Monocytes # 0.1 K/mm3 (0.1-1.0); Monocytes % 3.3 % (1.7-9.3); Neutrophils % 47.5 % (37.0-80.0); Platelet Count 382 K/mm3 (142-424); Red Blood Count 4.15 M/mm3 (4.20-5.40); Red Cell Distribution Width 14.9 % (11.5-17.5); White Blood Count 4.2 K/mm3 (4.8-10.8)
[2022-07-16 11:48] LABS: Hemoglobin A1C 4.8 % (4.0-6.0)
[2022-07-16 12:00] LABS: Erythrocyte Sedimentation Rate 14 mm/hr (0-20)
[2022-07-16 12:19] LABS: Alanine Aminotransferase 24 U/L (12-78); Albumin Level 4.1 g/dl (3.5-5.0); Albumin/Globulin Ratio 1.4 (1.1-1.8); Alkaline Phosphatase 80 U/L (38-126); Anion Gap 8.5 mEq/L (5-15); Aspartate Amino Transferase 33 U/L (14-36); Bilirubin,Total 0.6 mg/dl (0.2-1.3); Blood Urea Nitrogen 7 mg/dl (7-17); Calcium 8.6 mg/dl (8.4-10.2); Carbon Dioxide 27 mmol/L (22.0-30.0); Chloride 104 mmol/L (98-107); Chol/HDL Ratio 5.3 (1-3.5); Cholesterol 189 mg/dl (140-200); Estimated Glomerular Filt Rate 114 ml/min (>60); GFR (African American) 138 ML/MIN (>60); Globulin 2.9 g/dL (1.3-3.2); Glucose 90 mg/dl (74-100); HDL Cholesterol 36 mg/dl (40-60); Potassium 4.5 mmoL/L (3.5-5.1); Sodium 135 mmol/L (136-145); Triglycerides 162 mg/dl (30-150); VLDL Cholesterol 32 mg/dL (0-40)
[2022-07-16 12:30] LABS: Direct LDL Cholesterol 124.62 mg/dL (100-129)
[2022-07-16 12:49] LABS: Thyroid Stimulating Hormone 0.67 uIU/mL (0.465-4.68)
[2022-07-16 13:12] LABS: 25-OH Vitamin D, Total < 12.8 ng/mL (30-100)
[2022-07-21 11:21] LABS: Ferritin 6.98 ng/ml (6.24-137); Iron 32 ug/dL (37-170); Vitamin B12 200 pg/mL (239-931)
== END ==
PROVIDERS: PCP Nurse Practitioner Family; Visit Provider Nurse Practitioner Family
DX: Z00.00 Encounter for general adult medical examination without abnormal findings (principal); M54.2 Cervicalgia; M70.61 Trochanteric bursitis, right hip; D64.9 Anemia, unspecified; E55.9 Vitamin D deficiency, unspecified
CPT/HCPCS: 36415; 72050; 80053; 80061; 82306; 82607; 82728; 82746; 83036; 83540; 84443; 85025; 85651

== ENCOUNTER 2022-12-30 11:16 | Emergency (ER) | payer OTHER, SELFPAY ==
[2022-12-30 11:20] VITALS: BP 148/95; PULSE 78; RESP 18; TEMP 36.7; O2SAT 100; BMI 31.8
--- NOTE | 2022-12-30 11:21 | XR_ITS ---
FINAL REPORT CLINICAL HISTORY: fall, rt hip pain FINDINGS: AP and frog leg views of the right hip were obtained. There is no prior exam for comparison. There is no acute fracture or dislocation. Joint space is preserved. Soft tissues are within normal limits. IMPRESSION: No acute osseous abnormality of the right hip. If pain persists, MR is recommended. Reviewed, Interpreted and Dictated by Arielle Martinez MD Transcribed by Isabel Barclay Authenticated and . [facility]
--- NOTE | 2022-12-30 11:21 | XR_ITS ---
FINAL REPORT CLINICAL HISTORY: fall, lt hip pain FINDINGS: AP and frog leg views of the left hip were obtained. There is no prior exam for comparison. There is no acute fracture or dislocation. Joint space is preserved. Soft tissues are within normal limits. IMPRESSION: No acute osseous abnormality of the left hip. If pain persists, MR is recommended. Reviewed, Interpreted and Dictated by Arielle Martinez MD Transcribed by Isabel Barclay Authenticated and [facility]
--- NOTE | 2022-12-30 11:21 | XR_ITS ---
FINAL REPORT CLINICAL HISTORY: fall, back pain FINDINGS: LUMBAR SPINE 3 views were obtained. There is no acute fracture. There is no malalignment. The disc spaces are preserved. There is no soft tissue abnormality. IMPRESSION: No acute bony abnormality. Reviewed, Interpreted and Dictated by Arielle Martinez MD Transcribed by Isabel Barclay Authenticated and [facility]
--- NOTE | 2022-12-30 11:21 | XR_ITS ---
FINAL REPORT CLINICAL HISTORY: fall, back pain FINDINGS: THORACIC SPINE 2 views were obtained. There is no acute fracture. There is no malalignment. The disc spaces are preserved. There is no soft tissue abnormality. IMPRESSION: No acute bony abnormality. Reviewed, Interpreted and Dictated by Arielle Martinez MD Transcribed by Isabel Barclay Authenticated and . [facility]
--- NOTE | 2022-12-30 11:33 | EXP.UTC ---
Discharge Plan Disposition Patient Disposition: Home, Self-Care Condition: Good Prescriptions Prescriptions: New methylprednisolone 4 mg Tablets,Dose Pack 4 mg PO DIRECTED Qty: 21 0RF cyclobenzaprine 10 mg Tablet 10 mg PO BID PRN (Reason: Muscle Spasm) Qty: 20 0RF Referrals Follow up/Referrals: Zafar Arriaga MD [Primary Care Provider] - See instructions Activity Restrictions/Add. Instructions Additional Instructions/Restrictions: Go home and rest. It would be best if you rested tomorrow too. No heavy lifting. No twisting for the next few days. Take the oral medications as directed. The muscle relaxer (cyclobenzaprine--Flexeril) will make you drowsy, so don't drive or operate heavy machinery after taking it. Don't start the oral steroids (medrol dose pack) until tomorrow, since you had the shots in here today. Follow up with your regular doctor. GO TO THE ER FOR ANY WORSENING SYMPTOMS OR CONCERN, ESPECIALLY BOWEL OR BLADDER ISSUES, SADDLE AREA NUMBNESS, FEVER, ETC Clinical Impressions Clinical Impression: Acute low back pain with sciatica, Acute hip pain, bilateral, Fall Stand Alone Forms Stand Alone Forms: Work/School Release Instructions Patient Instructions: DI for Low Back Pain, DI for Sciatica Discharge ED Provider: Nicholas Leal [facility] General Stated complaint: ao fell at work hip pain and lower back Mode of Arrival: Ambulatory Source of Information: Patient Limitations: No Limitations Time Seen by Provider: 12/30/22 11:22 HEENT Symptoms (Recalled from RN notes): No Resp Symptoms (Recalled from RN notes): No Skin Symptoms (Recalled from RN notes): No MS Symptoms (Recalled from RN notes): Yes Functional Status (Recalled from RN notes): n/a History of Present Illness Provider Complaint: She states that 7 days ago she slipped on water and fell straight back on her butt while walking down a wet ramp. She came down on her bottom. Since then she has had low back pain that radiates down both legs. Then, yesterday, she fell again. She states that she fell backwards in her yard and reinjured herself from last week. She denies any other injury. She denies any bowel or bladder issues. She denies any saddle area numbness. Related Data Previous Rx's Medication Instructions Recorded cyclobenzaprine 10 mg tablet 10 mg PO BID PRN Muscle Spasm #20 12/30/22 tabs methylprednisolone 4 mg tablets in 4 mg PO DIRECTED #21 tabs 12/30/22 a dose pack Allergies Allergy/AdvReac Type Severity Reaction Status Date / Time No Known Allergies Allergy Verified 12/30/22 11:33 Worker's Comp Is this a Worker's Comp case?: No [facility] Disclaimer: The information contained in this section may have been updated after the patient was seen, as this information can be updated by other users. Social History Smoking Status: Current every day smoker tobacco type: cigarettes packs per day: 1 alcohol intake: never substance use type: denies use and marijuana current occupational status: employed Travel in the last 8 weeks: None ROS Obtained: Yes All systems reviewed & no additional complaints except as documented Constitutional Constitutional: Denies chills and Denies fever(s) Eyes Eyes: Denies eye discharge ENT Ears, Nose, Mouth, and Throat: Denies dizziness, Denies otalgia and Denies sore throat Cardiovascular Cardiovascular: Denies chest pain Respiratory Respiratory: Denies shortness of breath, Denies chest congestion, Denies cough, Denies stridor and Denies wheezing Gastrointestinal Gastrointestingal: Denies abdominal pain, constipation, cramping, diarrhea, nausea or vomiting Genitourinary Female Genitourinary: Reports system reviewed and no additional complaints, except as documented, Denies difficulty voiding, Denies dysuria, Denies flank pain, Denies hematuria, Denies pelvic pain, Denies urinary frequency, Denies urinary i
[2022-12-30 13:00] VITALS: BP 148/95; PULSE 78; RESP 18; TEMP 36.7; O2SAT 100
== END 2022-12-30 12:40 | disposition home or self-care (01) ==
PROVIDERS: Emergency Provider Nurse Practitioner Family; PCP Internal Medicine Adolescent Medicine
DX: M25.551 Pain in right hip (principal); M25.552 Pain in left hip; M54.40 Lumbago with sciatica, unspecified side; F17.210 Nicotine dependence, cigarettes, uncomplicated; W01.10XA Fall on same level from slipping, tripping and stumbling with subsequent striking against unspecified object, initial encounter
CPT/HCPCS: 72070; 72100; 73502; 96372; 99212; 99214; G0463

== ENCOUNTER 2024-12-31 13:03 | Emergency (ER) | payer OTHER, SELFPAY ==
[2024-12-31 13:29] VITALS: BP 169/102; PULSE 84; RESP 18; TEMP 37; O2SAT 100; BMI 31.1
--- NOTE | 2024-12-31 13:32 | XR_ITS ---
FINAL REPORT CLINICAL HISTORY: pain and heard pop, recent swelling COMPARISON: None FINDINGS: Three views of the right knee were obtained. There is no acute fracture or dislocation. The joint spaces are well preserved. There is no acute soft tissue abnormality. IMPRESSION: No acute abnormality identified. Reviewed, Interpreted and Dictated by Eb Sales MD Transcribed by Kandice Guaman Authenticated and [facility]
--- NOTE | 2024-12-31 14:35 | CT_ITS ---
FINAL REPORT TECHNIQUE: Thin section axial CT images with coronal and sagittal reformats were performed. This study was performed with techniques to keep radiation doses as low as reasonably achievable (ALARA). Individualized dose reduction techniques using automated exposure control or adjustment of mA and/or kV according to the patient''s size were employed. CLINICAL HISTORY: pain COMPARISON: None FINDINGS: There is no fracture or dislocation. The joint space is preserved. There is a small joint effusion. No mass is identified. There are no soft tissue abnormalities. IMPRESSION: Small joint effusion without acute bony abnormality. Reviewed, Interpreted and Dictated by Eb Sales MD Transcribed by Kandice Guaman Authenticated and [facility]
--- NOTE | 2024-12-31 14:44 | ED_ITS ---
Discharge Plan Disposition Patient Disposition: Home, Self-Care Prescriptions Prescriptions: New oxycodone 5 mg tablet 5 mg PO Q6H PRN (Reason: pain) Qty: 12 0RF No Action methylprednisolone 4 mg Tablets,Dose Pack 4 mg PO DIRECTED Qty: 21 0RF cyclobenzaprine 10 mg Tablet 10 mg PO BID PRN (Reason: Muscle Spasm) Qty: 20 0RF Referrals Follow up/Referrals: Jac Aiken DO [Staff Physician, Orthopedics] - See instructions Zafar Arriaga MD [Primary Care Provider, Internal Medicine] - See instructions Activity Restrictions/Add. Instructions Additional Instructions/Restrictions: Use knee immobilizer and crutches until you see Dr. Aiken. Clinical Impressions Clinical Impression: ACL sprain Instructions Patient Instructions: Anterior Cruciate Ligament Injury Print Language Print Language: [place] Discharge ED Provider: Gibran Shannon Adult HPI General Chief complaint: PAIN Stated complaint: Pain in R knee, no accident Time Seen by Provider: 12/31/24 14:38 Mode of Arrival: Ambulatory Source of Information: Patient Description of Symptoms (Recalled from ER Triage Doc. by RN): pt presents to ED c/o right knee swelling x 1 week. pt states this morning she heard a Pop and has had pain present since. pt states pain is worse when putting weight on leg. History of Present Illness HPI narrative: 34-year-old female presents to the ED today for complaint of right knee pain and swelling for the past week. She says this started Tuesday. She says that she works through this and went to work Tuesday and Tuesday then worked the weekend but still feels like it is getting worse. She cannot bear weight any longer. She says that she got up this morning and took her son to an appointment and heard a pop since then it has been worse. She has been taking Tylenol and ibuprofen and this is not helping. She is not here and says it just hurts. No other symptoms. Related Data Previous Rx's ?Medication ?Instructions ?Recorded cyclobenzaprine 10 mg tablet 10 mg PO BID PRN Muscle S pasm #20 12/30/22 tabs methylprednisolone 4 mg tablets in 4 mg PO DIRECTED #21 tabs 12/30/22 a dose pack oxycodone 5 mg tablet 5 mg PO Q6H PRN pain #12 tab s 12/31/24 Allergies Allergy/AdvReac Type Severity Reaction Status Date / Time No Known Allergies Allergy Verified 12/30/22 11:33 [facility] Disclaimer: The information contained in this section may have been updated after the patient was seen, as this information can be updated by other users. Social History Smoking Status: Never smoker alcohol intake: never substance use type: denies use and marijuana current occupational status: employed Travel in the last 8 weeks?: None Other Medical History Have you received the Flu Vaccine for this season: No Have you received the Pneumonia Vaccine: No ROS Obtained: Yes Systems reviewed as appropriate & no additional complaints except as documented Constitutional Constitutional: Reports as per HPI Physical Exam General General appearance: alert and in no apparent distress Head Head exam: normocephalic Eye Eye exam: Present PERRL and EOMI ENT ENT exam: Present normal oropharynx and mucous membranes moist Neck Neck exam: Present full ROM and trachea midline Respiratory Respiratory exam: Present normal lung sounds bilaterally Cardiovascular Cardiovascular exam: Present regular rate, normal rhythm, normal heart sounds, +S1 and +S2 Extremities Exam Extremities exam: Present tenderness, normal capillary refill, edema and joint swelling Neurological Exam Neurological exam: Present alert and oriented X3 Skin Skin exam: Present warm, dry and intact Medical Decision Making Medical Records Screening: Per USPSTF and CDC recommendations, given the prevalence of disease in our region, it is our hospital?s policy to screen for HIV and viral Hepatitis for all patients aged 18 and over and those with ongoing risk factors. Marciano Inquiry Pt receiving controlled substance: No Marciano was queried for this patient: No Vital Signs: 12/31/24 13:29 12/31/24 17:27 Temperature 98.6 F 97.9 F Temperature Source Temporal Artery Scan Pulse Rate 73 Pulse Rate [Right Radial] 84 Respiratory Rate 18 20 Blood Pressure 140/70 Blood Pressure [Right Arm] 169/102 H Blood Pressure Mean [Right Arm] 124 Blood Pressure Source [Right Arm] Automatic Cuff Blood Pressure Position [Right Arm] Sitting 02 Sat by Pulse Oximetry 100 Oxygen Delivery Method Room Air Room Air Lab Data Lab Results 12/31/24 14:50: Urine Color Yellow, Urine Appearance Clear, Urine pH 8.0, Ur Specific [place] 1.020, Urine Protein Negative, Urine Glucose (UA) Negative, Urine Ketones Trace, Urine Blood Negative, Urine Nitrate Negative, Urine Bilirubin 1+ A, Urine Urobilinogen 4.0, Ur Leukocyte Esterase Negative, Urine RBC None, Urine WBC 3-5, Ur Squamous Epith Cells 3-5, Urine Bacteria 4+, Urine HCG, Qual Negative Orders (Tests/Meds): ED MEDICATIONS Discontinued Medications Generic Name Dose Route Start Last Admin Trade Name Jovita PRN Reason Stop Dose Admin Hydrocodone Bitart/Acetaminophen 2 tab 12/31/24 14:36 12/31/24 15:24 Hydrocodone/Apap 5/325 Mg Tablet PO 12/31/24 14:37 2 tab ONCE ONE Administration Dexamethasone Sodium Phosphate 8 mg 12/31/24 14:45 12/31/24 15:25 Dexamethasone 4mg/Ml 5ml Mdv IM 01/30/25 14:44 8 mg Q6H BOO Administration Ketorolac Tromethamine 30 mg 12/31/24 14:36 12/31/24 15:25 Ketorolac 30mg/Ml Vial IM 12/31/24 14:37 30 mg ONCE ONE Administration ORDERS Category Date Time Status CT knee RT wo con Stat Cat Scan 12/31/24 14:35 Completed XR knee RT 3V Stat Exams 12/31/24 13:32 Completed Urinalysis and Microscopic Stat Lab 12/31/24 14:50 Completed Urine , HCG Qual. Stat Lab 12/31/24 14:50 Completed Urine Culture Stat Micro 12/31/24 14:50 Received Medical Decision Narrative: patient is a 34-year-old female presenting to the emergency department for evaluation of right knee pain and swelling with inability to bear weight without significant pain. Patient is hemodynamically stable and nontoxic-appearing upon arrival, afebrile. Differential diagnosis includes tibial plateau fracture, ligament injury, among other. Workup will be conducted with hematologic labs, specific imaging. Initial inventions include analgesics. Patient given pain meds while here in the ED. Patient's CT scan showed a small effusion. I had look at the scan and look at the patient's knee. He wanted to put the patient in knee immobilizer and use crutches. We are pretty sure that she has that ligament tear or sprain. Patient was given crutches and a knee immobilizer for discharge. Patient will follow-up with Dr. Aiken outpatient. Patient is safe for discharge home Critical Care Critical Care Time Critical Care Time: No
[2024-12-31 14:54] LABS: Microscopic, Urine URINE MICROSCOPIC (MICROSCOPIC)
[2024-12-31 15:06] LABS: Color,Urine YELLOW (Yellow); Glucose,Urine (UA) Negative (Negative); Ketones,Urine TRACE (Negative); Leukocyte Esterase,Urine Negative (Negative); PH,Urine 8.0 (5.0-8.5); Protein,Urine Negative (Negative); Specific Gravity, Urine 1.020 (1.005-1.030); Urobilinogen,Urine 4.0 EU/dl (0.2)
[2024-12-31 15:08] LABS: Urine Pregnancy, HCG Qual. Negative (Negative)
[2024-12-31 15:14] LABS: Bilirubin,Urine 1+ (Negative)
[2024-12-31 15:21] LABS: Bacteria,Urine 4+ /lpf
[2024-12-31] MEDS: HYDROCODONE/APAP 5/325 MG TABLET 2 TAB PO (15:24)
[2024-12-31] MEDS: KETOROLAC 30MG/ML VIAL 30 MG IM (15:25)
[2024-12-31] MEDS: DEXAMETHASONE 4MG/ML 5ML MDV 8 MG IM (15:25)
[2024-12-31 17:27] VITALS: BP 140/70; PULSE 73; RESP 20; TEMP 36.6; O2SAT 98
== END 2024-12-31 17:29 | disposition home or self-care (01) ==
PROVIDERS: Nurse Practitioner; Emergency Provider Student in an Organized Health Care Education/Training Program; PCP Internal Medicine Adolescent Medicine
DX: S83.511A Sprain of anterior cruciate ligament of right knee, initial encounter (principal); M25.461 Effusion, right knee; X58.XXXA Exposure to other specified factors, initial encounter
CPT/HCPCS: 73562; 73700; 81001; 81025; 87086; 96372; 99282; 99284; J1100; J1885

== ENCOUNTER 2025-01-04 07:06 | Outpatient (CLI) | payer OTHER, SELFPAY ==
--- NOTE | 2025-01-04 07:00 | MR_ITS ---
FINAL REPORT CLINICAL HISTORY: right knee pain. swelling in knee [id number]. pop in knee x4days ago. entire knee pain. knee instability. COMPARISON: None FINDINGS: Multi planar MR imaging was performed of the knee. The anterior and posterior cruciate ligaments are intact. The quadriceps and patellar tendons are intact. The medial and lateral menisci are intact without evidence of tear. The medial and lateral collateral ligaments appear intact. The medial and lateral retinacula appear intact. There is no evidence of bone marrow edema or osteochondral defect. Grade I chondromalacia along the articular surface of the medial femoral condyle well-seen on image 17 of series 9. Small joint effusion. IMPRESSION: Grade 1 chondromalacia medial femoral condyle. Small joint effusion. Reviewed, Interpreted and Dictated by Eb Sales MD Transcribed by Kandice Guaman Authenticated and [facility]
--- OUTSIDE RECORDS SUMMARY | 2025-01-04 07:08 | XMS_ITS | Clinical Summary ---
Author Organization Healthcare Address [address] [place] [address] Care Team Providers Care Hand Sewer Name Role Phone Alanis Tolbert APRN Primary Care Provider [phone] Family History Medical History Relation Name Comments Conversions - Other Father No perti nent family history in first degree relatives Cardiac disorder Maternal Grandmother Stroke Maternal Grandmother Hyperlipidemia Mother Other cancer Mother Thyroid cancer Mother Breast cancer Paternal Grandmother Diabetes Paternal Grandmother Pancreatic cancer Paternal Grandmother Relation Name Status Comments Father Maternal Grandmother Mother Paternal Grandmother Social History Tobacco Use Types Packs/Day Years Used Date Smoking Tobacco: Every Day Alcohol Use Standard Drinks/Week Comments Yes 0 (1 standard drink = 0.6 oz pur e alcohol) Comments Unknown Sex and Gender Information Value Date Recorded Sex Assigned at Not on file Legal Sex Female 6:51 PM EDT Gender Identity Not on file Sexual Orientation Not on file Last Filed Vital Signs Vital Sign Reading Time Taken Comments Blood Pressure - - Pulse - - Temperature - - Respiratory Rate - - Oxygen Saturation - - Inhaled Oxygen Concentration - - Weight 69.6 kg (153 lb 8.1 oz) 09/11/2013 9:41 A M EDT Height 160 cm (5' 3 ) 09/11/2013 9:41 AM EDT Body Mass Index 27.19 09/11/2013 9:41 AM EDT Plan of Treatment Not on file Care Teams Hand Sewer Relationship Specialty Start Date End Date Alanis Tolbert APRN [address] [place] [id number] PCP - General 08/15/20
== END 2025-01-04 23:59 | disposition home or self-care (01) ==
PROVIDERS: PCP Internal Medicine Adolescent Medicine; Visit Provider Physician Assistant
DX: M94.261 Chondromalacia, right knee (principal); M25.461 Effusion, right knee; S83.511A Sprain of anterior cruciate ligament of right knee, initial encounter
CPT/HCPCS: 73721